=== PATIENT | female | born 1930 | race Caucasian/White ===

== ENCOUNTER 2017-12-05 13:31 | Emergency (ER) | payer OTHER ==
[~2017-12-05] VITALS: Ht 162.6 cm; Wt 75.1 kg
[2017-12-05 14:49] LABS: HEMATOCRIT 35.9 % (36.0-46.0); MCHC 33.4 G/DL (30.0-36.0); MCV 83.9 FL (83-99); PLATELET COUNT 185 K/uL (156-360); RBC DIS.WIDTH-CV 12.6 % (11.8-14.6); RBC DIS.WIDTH-SD 38.5 % (39-53); RED BLOOD COUNT 4.28 M/uL (3.80-5.20); WHITE BLOOD COUNT 6.7 K/uL (4.1-10.2)
[2017-12-05 15:11] LABS: TROP-I INTERPRETATION NEGATIVE; TROPONIN-I < 0.01 ng/mL (0.0-0.30)
[2017-12-05 15:36] LABS: CHLORIDE 98 MEQ/L (99-109); POTASSIUM 4.1 MEQ/L (3.7-5.4); SODIUM 133 MEQ/L (136-147)
[2017-12-05 15:41] LABS: CREATININE 0.7 MG/DL (0.6-1.3); GFR ESTIMATE (CALCULATED) > 59 mL/min/; GLUCOSE 164 mg/dL (70-99); UREA NITROGEN (BUN) 16 mg/dL (9-23)
[2017-12-05 17:45] VITALS: BP 110/68
== END 2017-12-05 18:01 | disposition home or self-care (01) ==
LOC: EME 13:31
PROVIDERS: Family Medicine
DX: R11.2 Nausea with vomiting, unspecified (principal); R42 Dizziness and giddiness; L75.0 Bromhidrosis; T40.4X5A Adverse effect of other synthetic narcotics, initial encounter; M81.0 Age-related osteoporosis without current pathological fracture; M48.00 Spinal stenosis, site unspecified; I10 Essential (primary) hypertension; E78.5 Hyperlipidemia, unspecified; Z85.9 Personal history of malignant neoplasm, unspecified; Z88.2 Allergy status to sulfonamides
CPT/HCPCS: 71045; 80048; 83880; 84484; 85027; 93005; J2405; J7040